=== PATIENT | male | born 1980 | race Hispanic/Latino ===

== ENCOUNTER 2019-07-02 20:48 | Emergency (ER) | payer OTHER ==
[2019-07-02] MEDS ORDERED: DiphenhydrAMINE HCL 50 MG/ML VIAL ONE (21:08)
[2019-07-02] MEDS ORDERED: METHYLPREDNISOLONE SOD SUCC 125MG/2ML VIAL ONE (21:08)
[2019-07-02] MEDS ORDERED: FAMOTIDINE/PF 20 MG/2 ML VIAL IV ONE (21:10)
[2019-07-02] MEDS ORDERED: ONDANSETRON HCL 4 MG/2 ML VIAL ONE (21:16)
== END 2019-07-02 22:52 | disposition home or self-care (01) ==
LOC: EDH 20:48
DX: T78.49XA Other allergy, initial encounter (principal); R06.02 Shortness of breath; R07.89 Other chest pain; Y92.89 Other specified places as the place of occurrence of the external cause; Z98.890 Other specified postprocedural states; X58.XXXA Exposure to other specified factors, initial encounter
CPT/HCPCS: 96374; 96375; 99284; J1200; J2405; J2930; J3490